=== PATIENT | female | born 1995 | race Hispanic/Latino ===

== ENCOUNTER 2017-11-06 02:31 | Emergency (ER) | payer OTHER ==
[~2017-11-06] VITALS: Ht 157.5 cm; Wt 64.0 kg
[~2017-11-06 02:31] MED LIST: STIMATE150 MCG/0.
[2017-11-06] MEDS ORDERED: HYDROCODONE/APAP 10MG-325MG TAB PO STA (02:55)
[2017-11-06] MEDS ORDERED: PENICILLIN G BENZATHINE LA 1.2 MU TBX IM STA (02:55)
[2017-11-06] MEDS ORDERED: HYDROCODONE/APAP 10MG-325MG TAB ONE (02:59)
[2017-11-06] MEDS ORDERED: LEVOFLOXACIN 250 MG TAB PO ONE (03:00)
[2017-11-06] MEDS ORDERED: LEVOFLOXACIN 500 MG TAB PO ONE (03:00)
[2017-11-06] MEDS ORDERED: LEVOFLOXACIN 250 MG TAB ONE (03:00)
[2017-11-06] MEDS ORDERED: PENICILLIN G BENZATHINE LA 1.2 MU TBX ONE (03:01)
[2017-11-06] MEDS ORDERED: LEVOFLOXACIN 500 MG TAB ONE (03:01)
== END 2017-11-06 03:31 | disposition home or self-care (01) ==
LOC: ER 02:31
DX: H66.001 Acute suppurative otitis media without spontaneous rupture of ear drum, right ear (principal)
CPT/HCPCS: 99282; J0561